=== PATIENT | female | born 1975 | race Caucasian/White ===

== ENCOUNTER → 2020-09-18 | Outpatient (CLI) | payer OTHER ==
[~2020-09-18] MED LIST: HYDROCHLOROTHIA25 M2 PO; METFORMIN HCL500 MG PO; NORVASC5 MG PO; TRINATE TABLET1 TAB PO; UNICOMPLEX M TA1 TA1 PO
== END ==
LOC: M.ULTRA 09:00
PROVIDERS: ATTEND Family Medicine
DX: R74.8 Abnormal levels of other serum enzymes (principal)